=== PATIENT | female | born 1945 | race Caucasian/White ===

== ENCOUNTER → 2020-07-31 | Outpatient (CLI) | payer MEDICARE ==
--- NOTE | 2020-07-31 09:05 | RAD ---
INDICATION: Reason: VISUAL LOSS L EYE / Spl. Instructions: / History: COMPARISON: None. TECHNIQUE: Color, grayscale and doppler ultrasound images obtained of the carotid system bilaterally. Percent stenosis is estimated using criteria that correlates with NASCET methodology. FINDINGS: Peak systolic velocities are as follows in cm/s: Right Carotid System: CCA: 93 ICA: 78 ICA/CCA Ratio 0.9 Left Carotid System: CCA: 69 ICA: 86 ICA/CCA Ratio 1.4 Vertebral arteries are antegrade bilaterally. Intimal thickening and plaque is visualized. This includes at the left carotid bulb. Less than 50 percent stenosis. IMPRESSION: * No hemodynamically significant stenosis of the internal carotid arteries bilaterally. Electronically signed by: Filipe Fowler MD (07/31/2020 9:02 AM) [id number]
== END | disposition home or self-care (01) ==
LOC: US 07:56
PROVIDERS: ATTEND Family Medicine
DX: H34.211 Partial retinal artery occlusion, right eye (principal); H54.62 Unqualified visual loss, left eye, normal vision right eye
CPT/HCPCS: 93880

== ENCOUNTER → 2020-10-23 13:09 | Emergency (ER) | payer MEDICARE | END | disposition left against medical advice (07) | LOC: ER 13:09 | DX: R03.0 Elevated blood-pressure reading, without diagnosis of hypertension (principal); Z53.21 Procedure and treatment not carried out due to patient leaving prior to being seen by health care provider ==

== ENCOUNTER → 2022-04-03 | Outpatient (CLI) | payer MEDICARE ==
--- NOTE | 2022-04-03 11:07 | RAD ---
EXAM: Abdomen sonogram. HISTORY: Epigastric pain. Elevated amylase. TECHNIQUE: Sonographic imaging of the abdomen was performed. COMPARISON: None. FINDINGS: The liver is normal in size. No focal hepatic lesion is seen. The common bile duct is jose f l in caliber. The gallbladder wall is normal in thickness. There are nonmobile bile and echogenic foc i along the gallbladder wall tiny nonmobile gallstones or tiny polyps measuring up to 3 mm. There is no cholecystitis. The right kidney is normal in size. There are small right renal cysts, the largest which measures 1.8 cm. These are simple in appearance. Follow-up is not routinely performed for simpl e cysts. The pancreas, aorta and inferior vena cava are partially obscured due to bowel gas. IMPRESSION: 1. No acute sonographic finding. 2. Tiny nonmobile bile gallstones or tiny gallbladder polyps. 3. Simple appearing right renal cysts. 4. Partially obscured midline structures due to bowel gas. Electronically signed by: Prisca Curry MD (04/03/2022 11:04 AM) [id number]
== END ==
LOC: US 09:14
PROVIDERS: ATTEND Family Medicine
DX: R10.11 Right upper quadrant pain (principal); R10.13 Epigastric pain; R74.8 Abnormal levels of other serum enzymes
CPT/HCPCS: 76705